=== PATIENT | male | born 1980 | race Caucasian/White ===

== ENCOUNTER 2016-11-12 17:30 | Emergency (ER) | payer BC, OTHER ==
[2016-11-12 17:51] VITALS: BP 109/75
--- NOTE | 2016-11-12 18:20 | UC ---
Throat Pain/Nasal Vicente HPI - HPI Summary HPI Summary: The patient comes in today for: 1. Sore throat: Onset: "a couple days ago." Palliative/provocative: Sucrets "helps a little bit." Quality: Burning. Region: "All the way in the back of the throat." Severity: 3/10 Time: Constant. Associated symptoms: Fevers: None. Rhinitis: "A little bit, clear." Cough: None up to now. Previous treatment; None. * - History of Current Complaint Chief Complaint: UCRespiratory Stated Complaint: SORE THROAT CONGESTION EARS Time Seen by Provider: 11/12/16 18:15 Hx Obtained From: Patient - Allergies/Home Medications Allergies/Adverse Reactions: Allergies Allergy/AdvReac Type Severity Reaction Status Date / Time No Known Allergies Allergy Verified 11/12/16 17:51 Home Medications: Home Medications Dextromethorphan-Phenylephrine [Day Time Multi-Symptom Co 10-5-325 mg] 2 cap PO PRN 11/12/16 [History] Ibuprofen [Ibuprofen 200 MG] 600 mg PO PRN 11/12/16 [History] PMH/Surg Hx/FS Hx/Imm Hx Previously Healthy: Yes Endocrine History Of: Denies: Diabetes, Thyroid Disease, Hyperthyroidism, Hypothyroidism, Dyslipidemia Cardiovascular History Of: Denies: Cardiac Disorders, Hypertension, Pacemaker/ICD, Myocardial Infarction , Congestive Heart Failure, Atrial Fibrillation, Deep Vein Thrombosis, Bleeding Disorders Respiratory History Of: Denies: COPD, Asthma, Bronchitis, Pneumonia, Pulmonary Embolism GI/ History Of: Denies: Gastroesophageal Reflux, Ulcer, Gastrointestinal Bleed, Gall Bladder Disease, Kidney Stones, Diverticulitis, Renal Disease, Urosepsis Neurological History Of: Denies: TIA, CVA, Dementia, Seizures, Migraine Psychological History Of: Denies: Anxiety, Depression, Bipolar Disorder, Schizophrenia, Post Traumatic Stress Disorder Cancer History Of: Denies: Lung Cancer, Colorectal Cancer, Breast Cancer, Prostate Cancer, Cervical Cancer Other History Of: Negative For: HIV, Hepatitis B, Hepatitis C, Anticoagulant Therapy - Surgical History Surgical History: None Surgery Procedure, Year, and Place: LASIK, Left Fifth Finger Nerve and Tendon Repair. RIGHT SHOULDER SUGERY , MARCH 2015 - Family History Known Family History: Negative: Cardiac Disease, Hypertension, Blood Disorder Family History: no family history of cardio-vascular disorders - Social History Occupation: Employed Full-time Alcohol Use: Occasionally Substance Use Type: None Smoking Status (MU): Never Smoked Tobacco Amount Used/How Often: SMOKED ON OCCASION When Did the Patient Quit Smoking/Using Tobacco: "long time ago" - Immunization History Most Recent Tetanus Shot: Jun 2013 Review of Systems Constitutional: Negative Skin: Negative Eyes: Negative ENT: Sore Throat, Nasal Discharge Cardiovascular: Negative Gastrointestinal: Negative Genitourinary: Negative All Other Systems Reviewed And Are Negative: Yes Physical Exam Triage Information Reviewed: Yes Appearance: Well-Appearing, No Pain Distress, Well-Nourished Vital Signs: Initial Vital Signs Temp 97.5 F 11/12/16 17:47 Pulse 61 11/12/16 17:47 Resp 14 11/12/16 17:47 BP 109/75 11/12/16 17:47 Pulse Ox 98 11/12/16 17:47 Vital Signs Reviewed: Yes Eyes: Positive: Conjunctiva Clear. Negative: Discharge ENT: Positive: Hearing grossly normal. Negative: Pharyngeal erythema, Nasal congestion, Nasal drainage, TM bulging, TM dull, TM red, Tonsillar swelling, Tonsillar exudate Dental: Negative: Gross Decay/Caries @, Dental Fracture @ Neck: Negative: Supple, Nontender, No Lymphadenopathy, Nuchal Rigidity Respiratory: Positive: Lungs clear, No respiratory distress, No accessory muscle use. Negative: Crackles, Wheezing Cardiovascular: Positive: RRR, No Murmur Abdomen Description: Positive: Nontender, No Organomegaly, Soft. Negative: Distended, Guarding Musculoskeletal: Positive: Strength Intact, ROM Intact, No Edema Neurological: Positive: Alert, Muscle Tone Normal Psychological: Positive: Age Appropriate Behavior, Consolable Skin: Negative: rashes, breakdown Diagnostics - Laboratory Diagnostic Studies Completed/Ordered: Strep test: (-) Throat Pain/Nasal Course/Dx - Course Assessment/Plan: Treatment options were explained. He wants to try viscous lidocaine and Naproxen. - Differential Dx/Diagnosis Differential Diagnosis/HQI/PQRI: Laryngitis, Mononucleosis, Otitis Media, Tonsillitis Provider Diagnoses: Viral pharyngitis Discharge - Discharge Plan Condition: Stable Disposition: HOME Patient Education Materials: Pharyngitis (ED) Referrals: Dragan Morse MD [Primary Care Provider] - 1 Week (Please see your primary care provider in about a week to see how well you are doing. If you get worse, please be seen sooner.)
== END 2016-11-12 19:01 | disposition home or self-care (01) ==
LOC: UCCORT 17:30
DX: J02.9 Acute pharyngitis, unspecified (principal)
CPT/HCPCS: 99212; G0463

== ENCOUNTER 2018-08-13 20:49 | Emergency (ER) | payer BC ==
[2018-08-13 21:15] VITALS: BP 140/91
--- NOTE | 2018-08-13 21:56 | UC ---
UC General HPI - HPI Summary HPI Summary: 38 yo gentleman c/o last several days increased congestion, now has L maxillary sinus pressure radiating to ear and neck. No fever. + post nasal drip. + minimally productive cough. Works evenings. No sob / cp. No rash. No GI issues. Reports that of all the symptoms, he wants his sinus pain to decrease. - History of Current Complaint Chief Complaint: UCGeneralIllness Stated Complaint: COUGH, CONGESTION Time Seen by Provider: 08/13/18 21:43 Hx Obtained From: Patient Pain Intensity: 1 - Allergy/Home Medications Allergies/Adverse Reactions: Allergies Allergy/AdvReac Type Severity Reaction Status Date / Time No Known Allergies Allergy Verified 08/13/18 21:15 PMH/Surg Hx/FS Hx/Imm Hx Previously Healthy: Yes Other History Of: Negative For: HIV, Hepatitis B, Hepatitis C, Anticoagulant Therapy - Surgical History Surgical History: Yes Surgery Procedure, Year, and Place: LASIK,. Left Fifth Finger Nerve and Tendon Repair. RIGHT SHOULDER SUGERY , MARCH 2015 - Family History Known Family History: Positive: None Negative: Cardiac Disease, Hypertension, Blood Disorder Family History: no family history of cardio-vascular disorders - Social History Occupation: Employed Full-time Alcohol Use: Occasionally Substance Use Type: None Smoking Status (MU): Never Smoked Tobacco Amount Used/How Often: SMOKED ON OCCASION When Did the Patient Quit Smoking/Using Tobacco: "long time ago" - Immunization History Most Recent Tetanus Shot: Jun 2013 Review of Systems All Other Systems Reviewed And Are Negative: Yes Constitutional: Positive: Negative, Other - see hpi Skin: Positive: Other Eyes: Positive: Other ENT: Positive: Other Respiratory: Positive: Other Cardiovascular: Positive: Other Gastrointestinal: Positive: Negative Genitourinary: Positive: Negative Motor: Positive: Negative Neurovascular: Positive: Negative Musculoskeletal: Positive: Negative Neurological: Positive: Negative Psychological: Positive: Negative Is Patient Immunocompromised?: No Physical Exam Triage Information Reviewed: Yes Appearance: Well-Nourished - sitting up, conversing easily. Vital Signs: Initial Vital Signs Temp 97.2 F 08/13/18 21:11 Pulse 70 08/13/18 21:11 Resp 17 08/13/18 21:11 BP 140/91 08/13/18 21:11 Pulse Ox 99 08/13/18 21:11 Vital Signs Reviewed: Yes Eye Exam: Normal - normal, although eyes a little watery ENT: Positive: Other - post pharynx mild red, uvula midline no airway obst. trachea midline. no adenopathy. TM's au ortiz. L TM a little red. Dry cerumen au L>R, not obtstructive. Tender L maxillary sinus region. Nasal turbinates inflamed, L>R. Dental Exam: Normal Neck exam: Normal Neck: Positive: Supple, Nontender, No Lymphadenopathy Respiratory Exam: Other - + dry rhonchorus cough. Respiratory: Positive: Lungs clear, No respiratory distress, No accessory muscle use Cardiovascular Exam: Normal Cardiovascular: Positive: RRR, No Murmur, Pulses Normal, Brisk Capillary Refill Abdominal Exam: Normal Abdomen Description: Positive: Nontender Musculoskeletal Exam: Normal Musculoskeletal: Positive: Strength Intact Neurological Exam: Normal - grossly nonfocal Psychological Exam: Normal - conversing easily and appropriately Skin Exam: Normal - no visible or reported rash Course/Dx - Course Course Of Treatment: Reviewed coa / tx plan. Declines rx albuterol, has it at home. Rx azithromycin (start tonight) and tessalon perles. Considered infl ns , pt declines, no fever doesn't think it feels like influenza. Encouraged to seek medical attention worse or new problems. Questions as posed answered to the best of my ability. - Diagnoses Provider Diagnosis: Sinusitis, Upper respiratory infection Discharge - Sign-Out/Discharge Documenting (check all that apply): Patient Departure All imaging exams completed and their final reports reviewed: No Studies - Discharge Plan Condition: Stable Disposition: HOME Prescriptions: Azithromycin TAB* [Zithromax TAB (Z-NORBERTO) 250 mg #6 tabs] 500 mg PO DAILY 4 Days #8 tab Benzonatate CAP* [Tessalon 100 MG CAP*] 100 mg PO TID PRN #30 cap PRN Reason: Cough Patient Education Materials: Antihistamine (By mouth), Sinusitis (ED), Upper Respiratory Infection (ED) Referrals: Dragan Morse MD [Primary Care Provider] - Additional Instructions: If you take a decongestant, do so sparingly, and not at bedtime. Decongestant will elevate your blood pressure. BP today 140/91. Please have your blood pressure rechecked by your primary care physician in about 2 weeks. Minimize caffeine. Antihistamine as directed (over the counter) as needed for congestion / fluid build up. Please seek medical attention if you are not getting better or if your symptoms worsen. Drink plenty of fluids. - Billing Disposition and Condition Condition: STABLE Disposition: Home
[2018-08-13] MEDS ORDERED: Azithromycin TAB* 250 MG PO ONE (21:59)
== END 2018-08-13 22:12 | disposition home or self-care (01) ==
LOC: UCCORT 20:49
DX: J32.9 Chronic sinusitis, unspecified (principal); J06.9 Acute upper respiratory infection, unspecified
CPT/HCPCS: 99212; A9270-GY; G0463

== ENCOUNTER 2019-02-26 13:36 | Emergency (ER) | payer BC ==
[2019-02-26 14:45] VITALS: BP 122/71
--- NOTE | 2019-02-26 15:05 | UC ---
Respiratory Complaint HPI - HPI Summary HPI Summary: 39-year-old male presents with complaints of persistent and worsening cough. States about 3 weeks ago he developed cold-like symptoms including nasal congestion, runny nose, sore throat, and cough. States his other symptoms subsided but the cough has persisted. States yesterday he develops severe fatigue and last night developed subjective fever, shaking chills, and body aches. Denies chest pain, shortness of breath, diaphoresis, nausea, or vomiting. - History of Current Complaint Chief Complaint: UCRespiratory Stated Complaint: COUGH Time Seen by Provider: 02/26/19 14:47 Hx Obtained From: Patient Pain Intensity: 0 - Allergies/Home Medications Allergies/Adverse Reactions: Allergies Allergy/AdvReac Type Severity Reaction Status Date / Time No Known Allergies Allergy Verified 02/26/19 14:36 Home Medications: Home Medications Loratadine [Allergy Relief] 10 mg PO DAILY 02/26/19 [History Confirmed 02/26/19] Pseudoephedrine TAB* [Sudafed TAB*] 30 mg PO Q6H PRN 02/26/19 [History Confirmed 02/26/19] PMH/Surg Hx/FS Hx/Imm Hx Previously Healthy: Yes - Denies significant PMH Other History Of: Negative For: HIV, Hepatitis B, Hepatitis C, Anticoagulant Therapy - Surgical History Surgical History: Yes Surgery Procedure, Year, and Place: LASIK,. Left Fifth Finger Nerve and Tendon Repair. RIGHT SHOULDER SUGERY , MARCH 2015 - Family History Known Family History: Positive: Non-Contributory - Social History Occupation: Employed Full-time Lives: With Family Alcohol Use: Occasionally Substance Use Type: None Smoking Status (MU): Never Smoked Tobacco Amount Used/How Often: SMOKED ON OCCASION When Did the Patient Quit Smoking/Using Tobacco: "long time ago" - Immunization History Most Recent Tetanus Shot: Jun 2013 Review of Systems All Other Systems Reviewed And Are Negative: Yes Constitutional: Positive: Fever - Subjective, Chills, Fatigue Skin: Negative: Rash Eyes: Negative: Drainage, Eye Redness ENT: Negative: Sore Throat, Ear Ache, Nasal Discharge, Sinus Congestion, Sinus Pain/Tenderness Respiratory: Positive: Cough. Negative: Shortness Of Breath Cardiovascular: Negative: Palpitations, Chest Pain Gastrointestinal: Negative: Abdominal Pain, Vomiting, Diarrhea, Nausea Genitourinary: Positive: Negative Musculoskeletal: Positive: Negative Neurological: Positive: Negative Is Patient Immunocompromised?: No Physical Exam - Summary Physical Exam Summary: GENERAL APPEARANCE: Well developed, well nourished, alert and cooperative, and appears to be in no acute distress. EYES: Conjunctiva clear. No drainage. EARS: External auditory canals and tympanic membranes clear, hearing grossly intact. NOSE: No nasal discharge. THROAT: Pharynx normal. No tonsilar inflammation, swelling, exudate, or lesions. Uvula midline. Oral cavity normal. Teeth and gingiva in good general condition. NECK: Neck supple, non-tender without lymphadenopathy. CARDIAC: Normal S1 and S2. No S3, S4 or murmurs. Rhythm is regular. There is no peripheral edema, cyanosis or pallor. Extremities are warm and well perfused. Capillary refill is less than 2 seconds. Peripheral pulses intact. LUNGS: Clear to auscultation without rales, rhonchi, wheezing or diminished breath sounds. Dry, non-productive cough. ABDOMEN: Positive bowel sounds. Soft, nondistended, nontender. No guarding or rebound. No masses or hepatosplenomegally. MUSKULOSKELETAL: ROM intact to all extremities. No joint erythema or tenderness. Normal muscular development. Normal gait. SKIN: Skin normal color, texture and turgor with no lesions or eruptions. Triage Information Reviewed: Yes Vital Signs: Initial Vital Signs Temp 98 F 02/26/19 14:38 Pulse 69 02/26/19 14:38 Resp 18 02/26/19 14:38 BP 122/71 02/26/19 14:38 Pulse Ox 99 02/26/19 14:38 Vital Signs Reviewed: Yes Respiratory Course/Dx - Course Course Of Treatment: 39-year-old male presents with complaints of persistent and worsening cough. States about 3 weeks ago he developed cold-like symptoms including nasal congestion, runny nose, sore throat, and cough. States his other symptoms subsided but the cough has persisted. States yesterday he develops severe fatigue and last night developed subjective fever, shaking chills, and body aches. Denies chest pain, shortness of breath, diaphoresis, nausea, or vomiting. Afebrile. Vital signs stable. His exam was overall unremarkable except for a dry nonproductive cough. Considering the duration and worsening of his symptoms will treat him with a course of azithromycin for an acute bronchitis. I have also provided him with a prescription for Tessalon Perles 1 capsule. Hours as needed for cough. He is to follow-up with his primary care provider in 3-5 days if symptoms are not improving. Anticipatory guidance and warning symptoms were reviewed with the patient. Verbalizes understanding and agrees with plan of care. - Differential Dx/Diagnosis Differential Diagnosis/HQI/PQRI: Bronchitis, Lower Resp Infection, Other - URI Provider Diagnosis: Acute bronchitis Discharge - Sign-Out/Discharge Documenting (check all that apply): Patient Departure All imaging exams completed and their final reports reviewed: No Studies - Discharge Plan Condition: Stable Disposition: HOME Prescriptions: Azithromyxin NORBERTO (NF) [Z-Norberto (Zithromax) 250 mg tabs #6] 2 tab PO .TODAY, THEN 1 DAILY #6 tab Benzonatate CAP* [Tessalon 100 MG CAP*] 100 mg PO TID PRN #21 cap PRN Reason: Cough Patient Education Materials: Acute Bronchitis (ED) Referrals: Dragan Morse MD [Primary Care Provider] - 3 Days Additional Instructions: Your history and exam are consistent with acute bronchitis. Considering the duration and worsening of your symptoms we will treat you with an antibiotic. Take azithromycin 2 tabs today then 1 tab a day for next 4 days. Be aware that the cough with bronchitis may persist for 2-3 weeks even after treatment. Get plenty of rest. Drink plenty of fluids. Run a cool mist humidifer in your room at night. Take over the counter acetaminophen (Tylenol) or ibuprofen (Advil, Motrin) according to directions as needed for pain or fever. Take Tessalon Perles 1 cap every 8 hours as needed for cough. Follow up with your primary care provider in 3-5 days if symptoms do not improve. Seek immediate medical attention in the emergency room if you have fever greater than 100.5 F despite taking acetaminophen or ibuprofen, have chest pain , difficulty breathing, or have any worsening of symptoms. - Billing Disposition and Condition Condition: STABLE Disposition: Home - Attestation Statements Provider Attestation: Per institutional requirements, I have reviewed the chart, however, I was not consulted specifically or made aware of this patient by the midlevel provider. I did not personally evaluate, interact with , or disposition this patient.
== END 2019-02-26 15:21 | disposition home or self-care (01) ==
LOC: UCCORT 13:36
DX: J20.9 Acute bronchitis, unspecified (principal); Z87.891 Personal history of nicotine dependence
CPT/HCPCS: 99212; G0463

== ENCOUNTER 2019-07-30 09:21 | Emergency (ER) | payer BC ==
[2019-07-30 12:01] VITALS: BP 124/85
--- NOTE | 2019-07-30 12:16 | UC ---
Throat Pain/Nasal Vicente HPI - HPI Summary HPI Summary: 39 yo male with sore throat L>R x one day no f/c no ESTRELLA or myalgias - History of Current Complaint Chief Complaint: UCGeneralIllness Stated Complaint: ST Time Seen by Provider: 07/30/19 12:06 Hx Obtained From: Patient Onset/Duration: Sudden Onset, Lasting Hours Severity: Mild Pain Intensity: 2 Pain Scale Used: 0-10 Numeric Cough: None Associated Signs & Symptoms: Positive: Negative - Epiglottits Risk Factors Epiglottis Risk Factors: Negative - Allergies/Home Medications Allergies/Adverse Reactions: Allergies Allergy/AdvReac Type Severity Reaction Status Date / Time No Known Allergies Allergy Verified 07/30/19 12:01 PMH/Surg Hx/FS Hx/Imm Hx Previously Healthy: Yes Other History Of: Negative For: HIV, Hepatitis B, Hepatitis C, Anticoagulant Therapy - Surgical History Surgical History: Yes Surgery Procedure, Year, and Place: LASIK,. Left Fifth Finger Nerve and Tendon Repair. RIGHT SHOULDER SUGERY , MARCH 2015 - Family History Known Family History: Positive: Hypertension, Non-Contributory - Social History Alcohol Use: Occasionally Substance Use Type: None Smoking Status (MU): Never Smoked Tobacco Amount Used/How Often: SMOKED ON OCCASION When Did the Patient Quit Smoking/Using Tobacco: "long time ago" - Immunization History Most Recent Tetanus Shot: Jun 2013 Review of Systems All Other Systems Reviewed And Are Negative: Yes Constitutional: Positive: Negative Skin: Positive: Negative Eyes: Positive: Negative ENT: Positive: Sore Throat Respiratory: Positive: Negative Cardiovascular: Positive: Negative Gastrointestinal: Positive: Negative Motor: Positive: Negative Neurovascular: Positive: Negative Musculoskeletal: Positive: Negative Neurological: Positive: Negative Psychological: Positive: Negative Physical Exam Triage Information Reviewed: Yes Appearance: Well-Appearing, No Pain Distress, Well-Nourished Vital Signs: Initial Vital Signs Temp 98.7 F 07/30/19 11:59 Pulse 69 07/30/19 11:59 Resp 15 07/30/19 11:59 BP 124/85 07/30/19 11:59 Pulse Ox 98 07/30/19 11:59 Vital Signs Reviewed: Yes Eyes: Positive: Conjunctiva Clear ENT: Positive: Hearing grossly normal, Pharyngeal erythema, TMs normal, Tonsillar swelling - minimal, Uvula midline. Negative: Nasal congestion, Nasal drainage, Tonsillar exudate, Trismus, Muffled voice, Hoarse voice, Sinus tenderness Dental Exam: Normal Neck: Positive: Supple, Nontender, Enlarged Nodes @ - L>R ant cerv Diagnostics - Laboratory Lab Results: strep (-) Throat Pain/Nasal Course/Dx - Course Course Of Treatment: Strep test negative midline uvula no fullness or cellulitis of soft palate and no abscess noted his voice is normal The patient was not satisfied with my diagnosis and no antibiotics. I offered to call the ER and send him there for further evaluation He declined - Differential Dx/Diagnosis Provider Diagnosis: Acute sore throat Discharge ED - Sign-Out/Discharge Documenting (check all that apply): Patient Departure All imaging exams completed and their final reports reviewed: No Studies - Discharge Plan Condition: Stable Disposition: HOME Patient Education Materials: Pharyngitis (ED), Lymphadenopathy (ED) Referrals: Dragan Morse MD [Primary Care Provider] - 3 Days (if not better) Additional Instructions: Your strep test is negative I suspect a viral cause for your symptoms your throat appears redder on the left and you have swollen left cervical lymphnodes Recheck for fever Recheck for increased pain or increased difficulty swallowing I saw no abscess but that is always a concern when we see a unilateral sore throat I suggest aleve 1-2 twice daily as needed for pain - Billing Disposition and Condition Condition: STABLE Disposition: Home
== END 2019-07-30 12:40 | disposition home or self-care (01) ==
LOC: UCCORT 09:21
DX: J02.9 Acute pharyngitis, unspecified (principal)
CPT/HCPCS: 87651; 99211; G0463